=== PATIENT | male | born 1985 | race Caucasian/White ===

== ENCOUNTER → 2019-11-10 | Outpatient (CLI) | payer BC ==
--- NOTE | 2019-11-10 10:08 | CT ---
EXAMINATION TYPE: CT urogram wo/w con DATE OF EXAM: 11/10/2019 COMPARISON: None HISTORY: Microhematuria CT DLP: 3385 mGycm CONTRAST: Performed and without and with IV Contrast, patient injected with 100 ml mL of Isovue 300. CT Urography was performed with unenhanced followed by enhanced images of the kidneys, ureters and ur inary bladder. Delayed images were obtained. 3d reconstruction was performed at a separate work sta tion. FINDINGS: KIDNEYS/BLADDER: No hydronephrosis. 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 No solid masses are detected. Nonobstructing large calculus upper pole left kidney measures 2 cm. No additional calculi seen with certainty. LUNG BASES-: No visible nodule. No infiltrate. LIVER/GB: No calcified gallstones. Renal cystic changes noted. Biliary tree is of normal caliber. PANCREAS: No inflammation. No distinct mass. SPLEEN: No splenic enlargement. No lesion seen. ADRENALS: No nodule. No thickening. BOWEL: Normal appendix. Normal bowel caliber. No inflammation. GENITAL ORGANS: No gross abnormality. LYMPH NODES: No greater than 1cm abdominal or pelvic lymph nodes are appreciated. AORTA: No significant abnormality. OSSEOUS STRUCTURES: No significant abnormality is seen. OTHER: No significant additional abnormality is seen. IMPRESSION: 1. Autosomal dominant renal cystic disease. 2. Nonobstructing left-sided nephrolithiasis.
== END | disposition home or self-care (01) ==
LOC: RADCTMAIN 07:31
PROVIDERS: ATTEND Urology
DX: Q61.9 Cystic kidney disease, unspecified (principal); N20.0 Calculus of kidney
CPT/HCPCS: 74178; 74400; Q9967

== ENCOUNTER → 2019-12-19 | Outpatient (CLI) | payer BC ==
[2019-12-19 14:02] LABS: Basophils # (A) 0.1 k/uL (0-0.2); Basophils % (A) 1 %; Eosinophils # (A) 0.4 k/uL (0-0.7); Eosinophils % (A) 4 %; HCT 47.1 % (39.0-53.0); HGB 15.5 gm/dL (13.0-17.5); Lymphocytes # (A) 3.2 k/uL (1.0-4.8); Lymphocytes % (A) 34 %; MCH 26.7 pg (25.0-35.0); MCV 80.9 fL (80.0-100.0); Mean Platelet Volume 7.6; Monocytes # (A) 0.5 k/uL (0-1.0); Monocytes % (A) 5 %; Neutrophils # (A) 5.2 k/uL (1.3-7.7); Neutrophils % (A) 55 %; Platelet Count 242 k/uL (150-450); RBC 5.82 m/uL (4.30-5.90); RDW 13.7 % (11.5-15.5); WBC 9.5 k/uL (3.8-10.6)
[2019-12-19 14:14] LABS: African American GFR (CKD) >90 (>60 ml/min/1.73 sqM); Anion Gap 8 mmol/L; Blood Urea Nitrogen 18 mg/dL (9-20); Carbon Dioxide 24 mmol/L (22-30); Chloride 104 mmol/L (98-107); Glucose 89 mg/dL (74-99); Non-African American GFR(CKD) >90 (>60 ml/min/1.73 sqM); Potassium 4.5 mmol/L (3.5-5.1); Sodium 136 mmol/L (137-145)
== END ==
LOC: LABPAT 12:30
PROVIDERS: ATTEND Urology
DX: Z01.818 Encounter for other preprocedural examination (principal); N20.0 Calculus of kidney
CPT/HCPCS: 80048; 85025

== ENCOUNTER 2019-12-26 11:56 | Observation (INO) | payer BC ==
[2019-12-19 14:35] LABS: Appearance,Urine Clear (Clear); Bilirubin,Urine Negative (Negative); Blood,Urine Negative (Negative); Color,Urine Colorless; Glucose,Urine (UA) Negative (Negative); Ketones,Urine 1+ (Negative); Leukocyte Esterase,Urine Negative (Negative); Nitrite,Urine Negative (Negative); PH, Urine 5.5 (5.0-8.0); Protein,Urine Negative (Negative); Specific Gravity,Urine 1.005 (1.001-1.035); Urobilinogen,Urine <2.0 mg/dL (<2.0)
--- NOTE | 2019-12-25 13:32 | P.HPIHPCON ---
History of Present Illness H&P Date: 12/26/19 Chief Complaint: Left-sided renal stones This is a 34-year-old male with a history of 1.9 cm upper pole left-sided stone and a 1 centimeter left-sided lower pole. I discussed with him the finding of CTs in detail. Discussed with him surgical options which include PCNL, ure teroscopy, ESWL. Discussed the benefit and risk of each procedure. Discussed with him with a PCNL the stones can be addressed in 1 setting, discussed with him and ESWL or ureteroscopy would require a minimum of 2 procedures to address his stones possibly 3. He understood all the risks and agree to proceed with PCNL. Discussed with him the risk from PCNL includes but not limited to bleeding, infection, injury to nearby organ, which includes bowel, spleen, lungs. He understood all the risks and agree to proceed Consent for Procedure: I have explained the operation/procedure to the patient, including the risks, benefits, side effects, alternative therapies (including not receiving the proposed treatment or service), the likelihood of the patient achieving his/her goals, and potential recuperation problems for the procedure/sedation/analgesia, as well as any blood products, if indicated. I also explained to the patient the risks, benefits and side effects of the alternatives, as well as the risks related to not receiving the proposed procedure, care, treatment, or services. - Constitutional Constitutional: Denies chills, Denies fever - Cardiovascular Cardiovascular: Denies chest pain, Denies shortness of breath - Respiratory Respiratory: Denies cough, Denies 7 - Gastrointestinal Gastrointestinal: Denies abdominal pain, Denies diarrhea, Denies nausea, Denies vomiting - Genitourinary (Female) Genitourinary: Denies dysuria, Denies hematuria - Genitourinary (Male) Genitourinary: Denies dysuria, Denies hematuria Past Medical History Past Medical History: Asthma Additional Past Medical History / Comment(s): kidney stones x2. currently fol lowing keto diet History of Any Multi-Drug Resistant Organisms: None Reported Past Surgical History: Orthopedic Surgery Additional Past Surgical History / Comment(s): surgery lt great toe, eye surgery muscle cut to correct movement, repair deviated septum,benign tumor removed from lt canal Past Anesthesia/Blood Transfusion Reactions: No Reported Reaction Smoking Status: Current every day smoker - Past Family History Father Family Medical History: Deep Vein Thrombosis (DVT) Mother Family Medical History: Cancer Additional Family Medical History / Comment(s): breast cancer Medications and Allergies Home Medications Medication Instructions Recorded Confirmed Type ALPRAZolam [Xanax] 1 mg PO DAILY PRN 12/23/19 12/23/19 History Albuterol Inhaler [Ventolin Hfa 1 puff INHALATION DAILY PRN 12/23/19 12/23/19 History Inhaler] Biotin 5,000 mcg PO DAILY 12/23/19 12/23/19 History Cholecalciferol [Vitamin D3 (25 5,000 unit PO DAILY 12/23/19 12/23/19 History Mcg = 1000 Iu)] Ibuprofen [Motrin] 400 mg PO DAILY PRN 12/23/19 12/23/19 History Multivitamins, Thera [Multivitamin 1 tab PO DAILY 12/23/19 12/23/19 History (formulary)] [place]-3 Fatty Acids/Fish Oil [Fish 1 each PO DAILY 12/23/19 12/23/19 History Oil 1,000 mg Softgel] Allergies Allergy/AdvReac Type Severity Reaction Status Date / Time No Known Allergies Allergy Verified 12/23/19 14:42 Surgical - Exam - General well developed, well nourished, no distress, no pain - Eyes PERRL, normal ocular movement - Respiratory normal expansion, normal respiratory effort - Abdomen Abdomen: soft, non tender - Psychiatric oriented to time, oriented to person, oriented to place Assessment and Plan Assessment: 34-year-old male with history of left-sided renal stone -OR for left sided PCNL
[~2019-12-26 11:56] MED LIST: DEXAMETHASONE SOD PHOSPHATE 10 MG/ML 1 ML VIAL IV ONE; LIDOCAINE 1% (10MG/ML) FOR IV START INTRADERMA PRN; METOCLOPRAMIDE 5 MG/ML 2 ML VIAL IVP PRN; ONDANSETRON 4 MG/2 ML VIAL IVP ONE
--- NOTE | 2019-12-26 12:25 | XR ---
KUB HISTORY: Kidney stones Frontal KUB submitted on [address] images [address] correlated to CT urogram dated 11/10/2019 There is bowel gas which could obscure detail in the right. Phlebolith present within the pelvis on t he left. Left-sided renal calcifications are noted as on prior CT, upper lobe calcification measures 2.6 cm, lower pole calcification measures approximately 15 mm. No pneumoperitoneum or bowel obstructi on. Bone mineralization is normal. IMPRESSION: Left-sided nephrolithiasis.
[2019-12-26] MEDS: LACTATED RINGERS 1,000 ML IV SCH (12:45)
[2019-12-26] MEDS ORDERED: PROPOFOL 10 MG/ML 20 ML VIAL IV ONE (12:53)
[2019-12-26] MEDS ORDERED: MIDAZOLAM 2 MG/2 ML VIAL ONE (12:53)
[2019-12-26] MEDS ORDERED: HYDROmorphone (PF) 1 MG/ML ONE (12:53)
[2019-12-26] MEDS ORDERED: ROCURONIUM BROMIDE 10 MG/ML 5 ML VIAL IV ONE (12:53)
[2019-12-26] MEDS ORDERED: LIDOCAINE 1% INJ 10MG/ML (20 ML MDV) ONE (12:53)
[2019-12-26] MEDS ORDERED: fentaNYL (PF) 50 MCG/ML 2 ML AMP ONE (12:53)
[2019-12-26] MEDS ORDERED: SUCCINYLCHOLINE CHLORIDE 100 MG/5 ML SYR IV ONE (12:53)
[2019-12-26 13:10] LABS: INR 0.9 (<1.2); Prothrombin Time 9.7 sec (9.0-12.0)
[2019-12-26] MEDS ORDERED: IOPAMIDOL-370 50ML BTL IRRIGATION ONE ×2 (13:30)
[2019-12-26] MEDS ORDERED: LACTATED RINGERS 1,000 ML IV ONE ×2 (14:31→18:50)
[2019-12-26] MEDS: HYDROmorphone 0.5 MG/0.5 ML SYRINGE IVP PRN ×4 (18:50→18:56)
--- NOTE | 2019-12-26 18:59 | P.OP ---
Date of Procedure: 12/26/19 Preoperative Diagnosis: Left-sided renal stone Postoperative Diagnosis: Same Procedure(s) Performed: Cystoscopy, left ureteral catheterization, percutaneous nephrolithotomy, and antegrade stent placement Implants: 6-Swedish by 26 cm stent Anesthesia: ERNESTINA Surgeon: Boogie García Estimated Blood Loss (ml): 75 Pathology: other (Left renal stone) Condition: stable Indications for Procedure: This is a 34-year-old male with a history of 1.9 cm upper pole left-sided stone and a 1 centimeter left-sided lower pole. I discussed with him the finding of CTs in detail. Discussed with him surgical options which include PCNL, ureteroscopy, ESWL. Discussed the benefit and risk of each procedure. Discussed with him with a PCNL the stones are more likely to be addressed in 1 setting, discussed with him and ESWL or ureteroscopy would require a minimum of 2 procedures to address his stones possibly 3. He understood all the risks and agree to proceed with PCNL. Discussed with him the risk from PCNL includes but not limited to bleeding, infection, injury to nearby organ, which includes bowel, spleen, lungs. He understood all the risks and agree to proceed Operative Findings: 2 stones within the kidney, stone within the lower pole and additional stone within the upper pole. 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 Description of Procedure: Patient was brought to the operating room, general anesthesia was induced. He was prepped and draped and placed in the supine position on the stretcher. Cystoscopy fitted with 21 sheath was inserted per urethra, cystoscopy was performed whic showed No abnormality within the bladder. Next a 5-Swedish balloon occluding catheter was passed up the left ureteral orifice. a 16 fr house was placed. At this time the patient was placed in prone position. All pressure points were adequately padded. The patient was prepped and draped in sterile fashion. The sinterventional radiology obtained access to the left collecting. Please see Dr. Carroll's dictation for that portion of the surgery. Once access was obtained and 2 wires were placed down the ureter. At this time a nephrostomy balloon dilator was passed over the stiff wire, and it was inflated under fluoroscopy and was in adequate position. Next a 30-Swedish access sheath was passed over the nephrostomy balloon dilator. At this point the rigid nephroscope was inserted through the access sheath and the stone was encountered in the lower pole. The stone was fragmented using the ultrasound lithotripter. The fragments were removed and sent to pathology. at this time attention was carried to the upper pole stone. I attempted to advance the rigid nephroscope to the upper pole but wasn't able to secondary to the acute angle of the upper pole and infidubilar stenosis. At this time we switched to a flexible cystoscope. With moderate difficulty I was able to get up to the stone but of note patient had severe infundibular stenosis additionally there was an acute angle of the kidney stone. Using the holmium laser stone was fragmented into smaller fragments, fragments were removed and sent to pathology. Of note there was approximately 5 mm stone that was embedded within the upper pole and it was in an acute angle, multiple attempts were made to get access to the stone using the laser but I was not able to. Repeat nephroscopy demonstrated no other sizable fragments except the stone that was embedded within the upper pole. Nephroscopy was performed which showed evidence of UPJ narrowing. Given this finding decision was made to place an antegrade stent. Antegrade stent was placed under fluoroscopy, the distal curl was visualized on fluoroscopy, and the proximal curl was visualized on fluoroscopy also. Next a 10-Swedish nephrostomy tube was passed over the second wire and antegrade nephrostogram was performed which showed the nephrostomy tube to be in adequate location. The skin was closed using 2-0 silk, the tube was secured to the skin using the silks stitch. Sterile dressing was placed on the nephrostomy tube side. At this time the patient was placed back into supine position on the stretcher. flexible cystoscope was performed which confirmed that the distal curl was indeed in the bladder. The patient was awakened from anesthesia and taken to recovery in stable condition
[2019-12-26] MEDS ORDERED: ALPRAZolam 1 MG TAB PO PRN (19:02)
[2019-12-26] MEDS ORDERED: ALBUTEROL HFA INHALER INHALATION PRN (19:02)
[2019-12-26] MEDS: HYDROmorphone 1 MG/ML 1 ML SYRINGE IVP PRN ×2 (21:14→23:28)
[2019-12-26 21:18] VITALS: RESP 18
[2019-12-26] MEDS: D5-0.45% NACL WITH KCL 20MEQ/L 1,000 ML IV SCH (21:19)
[2019-12-27] MEDS ORDERED: ONDANSETRON 4 MG/2 ML VIAL IVP PRN (00:15)
[2019-12-27] MEDS: HEPARIN SODIUM,PORCINE 5,000 UNIT/ML 1 ML VIAL SQ SCH ×2 (00:47→08:54)
[2019-12-27] MEDS: KETOROLAC 15 MG/ML 1 ML VIAL IVP SCH ×2 (00:48→05:23)
[2019-12-27 02:09] VITALS: TEMP 97.7
[2019-12-27] MEDS: HYDROmorphone 1 MG/ML 1 ML SYRINGE IVP PRN (03:59)
[2019-12-27] MEDS: D5-0.45% NACL WITH KCL 20MEQ/L 1,000 ML IV SCH (04:08)
[2019-12-27] MEDS: LACTATED RINGERS 1,000 ML IV SCH (05:25)
[2019-12-27 07:05] LABS: Basophils % (A) 0 %; Eosinophils % (A) 0 %; HGB 13.9 gm/dL (13.0-17.5); Lymphocytes # (A) 1.5 k/uL (1.0-4.8); Lymphocytes % (A) 11 %; MCHC 31.5 g/dL (31.0-37.0); MCV 82.6 fL (80.0-100.0); Mean Platelet Volume 7.6; Monocytes # (A) 1.1 k/uL (0-1.0); Monocytes % (A) 8 %; Neutrophils # (A) 10.4 k/uL (1.3-7.7); Neutrophils % (A) 79 %; Platelet Count 233 k/uL (150-450); RBC 5.33 m/uL (4.30-5.90); RDW 14.4 % (11.5-15.5); WBC 13.1 k/uL (3.8-10.6)
--- NOTE | 2019-12-27 07:23 | FL ---
EXAMINATION TYPE: FL Perc Nephrostomy New Access DATE OF EXAM: 12/26/2019 COMPARISON: NONE HISTORY: Left nephrolithiasis. PROCEDURE: Maximal barrier technique was utilized, hand hygiene obtained with soap and water and alcohol-based h and rub. The skin overlying the left kidney was localized using fluoroscopy and the overlying skin p repped and draped. Skin anahi was made with a scalpel. Access was gained under fluoroscopy, following placement of a ureteral occlusion balloon by the referring clinician and instillation of air in the renal collecting system with a 21-gauge needle to the left kidney. A suitable posterior calyx was ch osen. A 0.018 inch wire was advanced. The access site was dilated following selection of the urete r with a 5 [place] catheter and 0.035 inch angled Glidewire and placement of a additional stiff wire, access site was upsized, safety wire deployed and subsequently a sheath was advanced into the r enal pelvis following dilation with balloon along the tract. The patient underwent nephrolithotomy by the referring clinician. The patient remained in stable condition without complication. The patie nt was discharged to observation in the care of anesthesia. IMPRESSION: STATUS POST NEPHROSTOMY PLACEMENT FOR NEPHROLITHOTOMY WITH FLUOROSCOPIC GUIDANCE. THIS PROCEDURE PER FORMED BY THE UNDERSIGNED.
[2019-12-27 09:04] LABS: African American GFR (CKD) 101.7 (60.0-200.0); Anion Gap 10.4 mmol/L (4.00-12.00); BUN/Creat Ratio 12.73 Ratio (12.00-20.00); Calcium 8.9 mg/dL (8.7-10.3); Carbon Dioxide 29.6 mmol/L (21.6-31.8); Non-African American GFR(CKD) 87.7 (60.0-200.0); Potassium 4.2 mmol/L (3.5-5.5)
[2019-12-27 09:30] VITALS: BP 111/62; PULSE 91
[2019-12-27 10:12] VITALS: BMI 36.3
--- NOTE | 2019-12-27 10:20 | P.DS ---
Providers Date of admission: 12/27/19 04:11 Attending physician: Boogie García MD Primary care physician: [facility] Course: The patient underwent a left percutaneous nephrostolithotomy by yesterday. He did well overnight. His urine is cleared nicely. He is ready for discharge home. He will be discharged home with a small prescription of Lang[place]. He'll go home with the nephrostomy tube. The catheter and IV will be removed. Postoperative instructions been given. He'll see Dr. Zelaya on December 31 and follow-up. His condition is good. Patient Condition at Discharge: Good Plan - Discharge Summary Discharge Rx Participant: Yes New Discharge Prescriptions: New HYDROcodone/APAP 5-325MG [Lang[place] 5-325] 1 tab PO Q4HR PRN #10 tab PRN Reason: Pain No Action Multivitamins, Thera [Multivitamin (formulary)] 1 tab PO DAILY Ibuprofen [Motrin] 400 mg PO DAILY PRN PRN Reason: Pain Cholecalciferol [Vitamin D3 (25 Mcg = 1000 Iu)] 5,000 unit PO DAILY [place]-3 Fatty Acids/Fish Oil [Fish Oil 1,000 mg Softgel] 1 each PO DAILY ALPRAZolam [Xanax] 1 mg PO DAILY PRN PRN Reason: Anxiety Biotin 5,000 mcg PO DAILY Albuterol Inhaler [Ventolin Hfa Inhaler] 1 puff INHALATION DAILY PRN PRN Reason: Dyspnea Discharge Medication List ALPRAZolam [Xanax] 1 mg PO DAILY PRN 12/23/19 [History] Albuterol Inhaler [Ventolin Hfa Inhaler] 1 puff INHALATION DAILY PRN 12/23/19 [History] Biotin 5,000 mcg PO DAILY 12/23/19 [History] Cholecalciferol [Vitamin D3 (25 Mcg = 1000 Iu)] 5,000 unit PO DAILY 12/23/19 [History] Ibuprofen [Motrin] 400 mg PO DAILY PRN 12/23/19 [History] Multivitamins, Thera [Multivitamin (formulary)] 1 tab PO DAILY 12/23/19 [History] [place]-3 Fatty Acids/Fish Oil [Fish Oil 1,000 mg Softgel] 1 each PO DAILY 12/23/19 [History] HYDROcodone/APAP 5-325MG [[place] 5-325] 1 tab PO Q4HR PRN #10 tab 12/27/19 [Rx] Follow up Appointment(s)/Referral(s): Boogie García MD [STAFF PHYSICIAN] - 1 Week Discharge Disposition: HOME SELF-CARE
[2019-12-27] MEDS ORDERED: ACETAMINOPHEN TAB 325 MG TAB PO STA (11:31)
== END 2019-12-27 12:45 | disposition home or self-care (01) ==
LOC: OR 11:56 → 4SSUR 18:48 → OR 12-27 04:10 → 4SSUR 12-27 04:11
PROVIDERS: ADMIT Urology; ATTEND Urology
DX: N20.0 Calculus of kidney (principal); Q61.3 Polycystic kidney, unspecified; K21.9 Gastro-esophageal reflux disease without esophagitis
CPT/HCPCS: 50080; 94760; 86900; 86901; 80048; 85025; 85610; 86850; 81003; 82365; 87086; 50432; 74018; 36415; G0378; C2625; C1769 ×3; C1894; C1729; J2250; J1644; J1100; J2765; J0690 ×2; J2405 ×2; J2001; J3010; J1170 ×3; J1885; J0330; J2704; Q9967

== ENCOUNTER 2020-01-14 08:08 | Day surgery (SDC) | payer BC ==
[2020-01-09 15:16] VITALS: BMI 36.5
--- NOTE | 2020-01-13 21:58 | P.HPIHPCON ---
History of Present Illness H&P Date: 01/14/20 Mr Meza is 34 yo male with hx of 2cm and 1 cm left renal stone S/P Left PCNL. Patient had stone fragment within the upper pole that could not be removed due to acute angle of the upper pole. He presents today for left sided ureteroscopy with holmium laser to address his stone. Of note his stent that was partially extruding from the left UO, he didn't tolerate attempted stent removal in the office. He presents today for left ureteroscopy, holmium laser lithotripsy and stent removal. discussed with him the risk of surgery which include but not limited to bleeding, infection and injury to ureter. Consent for Procedure: I have explained the operation/procedure to the patient, including the risks, benefits, side effects, alternative therapies (including not receiving the proposed treatment or service), the likelihood of the patient achieving his/her goals, and potential recuperation problems for the procedure/sedation/analgesia, as well as any blood products, if indicated. I also explained to the patient the risks, benefits and side effects of the alternatives, as well as the risks related to not receiving the proposed procedure, care, treatment, or services. Past Medical History Past Medical History: Asthma Additional Past Medical History / Comment(s): kidney stones x2. currently following keto diet History of Any Multi-Drug Resistant Organisms: None Reported Past Surgical History: Orthopedic Surgery Additional Past Surgical History / Comment(s): surgery lt great toe, eye surgery muscle cut to correct movement, repair deviated septum, benign tumor removed from lt canal, Past Anesthesia/Blood Transfusion Reactions: Postoperative Nausea & Vomiting (PONV) Additional Past Anesthesia/Blood Transfusion Reaction / Comment(s): nausea after last procedure Past Psychological History: Anxiety Smoking Status: Former smoker Past Alcohol Use History: Rare Additional Past Alcohol Use History / Comment(s): smoked cig x8 years currently was smoking 1 cigar daily,none since end 12/26/19 Past Drug Use History: None Reported - Past Family History Father Family Medical History: Deep Vein Thrombosis (DVT) Mother Family Medical History: Cancer Additional Family Medical History / Comment(s): breast cancer Medications and Allergies Home Medications Medication Instructions Recorded Confirmed Type ALPRAZolam [Xanax] 1 mg PO DAILY PRN 12/23/19 01/09/20 History Albuterol Inhaler [Ventolin Hfa 1 puff INHALATION DAILY PRN 12/23/19 01/09/20 History Inhaler] Biotin 5,000 mcg PO DAILY 12/23/19 01/09/20 History Cholecalciferol [Vitamin D3 (25 5,000 unit PO DAILY 12/23/19 01/09/20 History Mcg = 1000 Iu)] Multivitamins, Thera [Multivitamin 1 tab PO DAILY 12/23/19 01/09/20 History (formulary)] [place]-3 Fatty Acids/Fish Oil [Fish 1 each PO DAILY 12/23/19 01/09/20 History Oil 1,000 mg Softgel] HYDROcodone/APAP 5-325MG [[place] 1 tab PO Q4HR PRN #10 tab 12/27/19 01/09/20 Rx 5-325] Acetaminophen [Tylenol] 325 - 650 mg PO Q4H PRN 01/09/20 01/09/20 History Allergies Allergy/AdvReac Type Severity Reaction Status Date / Time No Known Allergies Allergy Verified 01/09/20 15:01 Surgical - Exam - General well developed, well nourished, no distress, no pain - Respiratory normal expansion, normal respiratory effort - Abdomen Abdomen: soft, non tender - Psychiatric oriented to time, oriented to person, oriented to place, speech is normal Assessment and Plan Assessment: 34 yo with hx of left sided renal stone -OR for left sided ureteroscopy with holmium laser lithotripsy, stone basketting and stent placement
[~2020-01-14 08:08] MED LIST changes: +LACTATED RINGERS 1,000 ML IV SCH; -METOCLOPRAMIDE 5 MG/ML 2 ML VIAL IVP PRN; -ONDANSETRON 4 MG/2 ML VIAL IVP ONE
--- NOTE | 2020-01-14 08:27 | XR ---
EXAMINATION TYPE: XR KUB DATE OF EXAM: 01/14/2020 8:18 AM CLINICAL HISTORY: Kidney stone and stent. TECHNIQUE: Two supine KUB images of the abdomen are obtained. COMPARISON: CT urogram November 10, 2019 abdominal x-ray December 26, 2019. FINDINGS: New double-J left ureteral stent. Large calculus upper pole left kidney on CT less well see n on plain films. Enlarged left renal margin redemonstrated. Overall nonobstructive bowel gas pattern. Visualized osseous structures are intact. IMPRESSION: As above.
[2020-01-14] MEDS ORDERED: ONDANSETRON 4 MG/2 ML VIAL ONE ×2 (08:36→13:56)
[2020-01-14] MEDS ORDERED: fentaNYL (PF) 50 MCG/ML 2 ML AMP ONE (10:04)
[2020-01-14] MEDS ORDERED: HYDROmorphone (PF) 1 MG/ML ONE (10:04)
[2020-01-14] MEDS ORDERED: LIDOCAINE 1% INJ 10MG/ML (20 ML MDV) ONE (10:04)
[2020-01-14] MEDS ORDERED: PROPOFOL 10 MG/ML 20 ML VIAL IV ONE (10:04)
[2020-01-14] MEDS ORDERED: MIDAZOLAM 2 MG/2 ML VIAL ONE (10:04)
[2020-01-14] MEDS ORDERED: PHENYLEPHRINE-0.9% NACL SYG 1 MG/10 ML SYRINGE ONE (10:04)
[2020-01-14] MEDS ORDERED: IOPAMIDOL-370 50ML BTL MISCELLANE ONE (10:42)
[2020-01-14] MEDS ORDERED: IOPAMIDOL-370 50ML BTL INTRATHECA ONE (10:42)
[2020-01-14] MEDS ORDERED: LACTATED RINGERS 1,000 ML IV ONE (10:58)
[2020-01-14 12:29] VITALS: TEMP 98.1
--- NOTE | 2020-01-14 12:50 | P.OP ---
Date of Procedure: 01/14/20 Preoperative Diagnosis: Left renal calculi Postoperative Diagnosis: Left renal calculi/bladder tumor Procedure(s) Performed: Cystoscopy, left ureteroscopy, holmium laser lithotripsy, stone basketing, stent exchange and bladder biopsy with fulguration Implants: 4.8-Fijian by 26 cm left on a string Anesthesia: ERNESTINA Surgeon: Boogie García Estimated Blood Loss (ml): 5 Pathology: other (Left renal calculi, bladder tumor) Condition: stable Disposition: PACU Indications for Procedure: Mr Meza is 34 yo male with hx of 2cm and 1 cm left renal stone S/P Left PCNL. Patient had stone fragment within the upper pole that could not be removed due to acute angle of the upper pole. He presents today for left sided ureteroscopy with holmium laser to address his stone. Of note his stent that was partially extruding from the left UO, he didn't tolerate attempted stent removal in the office. He presents today for left ureteroscopy, holmium laser lithotripsy and stent removal. discussed with him the risk of surgery which include but not limited to bleeding, infection and injury to ureter. Operative Findings: Papillary lesion along the posterior bladder wall, medial to the ureteral orifice, stone within the upper pole, no additional stones seen within the kidney Description of Procedure: Patient was brought to the operating room, general anesthesia was induced. He was prepped and draped in sterile fashion a placemed in dorsal lithotomy position. Cystoscopy fitted with 21 sheath was inserted per urethra, cystoscopy was performed which showed a papillary lesion that measured less than 0.5 emma timeter, and was located along the posterior bladder wall medial to the left ureteral orifice. The described lesion biopsy and sent to pathology, the area of biopsy was thoroughly fulgurated. Repeat cystoscopy showed no additional lesions or any other papillary lesion, there is no evidence of bleeding at the end of the fulguration. At this time the cystoscope was withdrawn and a semirigid ureteroscope was inserted. The stent appeared to have migrated a little further into the ureter. Using the stone basket the stent was grasped and removed intact. At this time the cystoscope was reinserted and the left ureteral orifice was intubated with a 6-Fijian open-ended catheter, retrograde pyelogram was performed showed no filling defect along the course a ureter. Next a sensor wire was advanced through the catheter, next an 11 x 13-Fijian access sheath was passed over the wire into the proximal ureter under fluoroscopy. The flexible ureteroscope was inserted through the access teeth. Using the holmium laser the stone was initially dusted, and then the smaller pieces were further fragmented. Using the stone basket the larger pieces were removed. Repeat ureteroscopy demonstrated no additional stones or any sizable fragments. Pullback ureteroscopy was performed showed no injury to the ureter or ureteral stones. Next a 4.8-Fijian by 26 cm stent was passed over the wire, the proximal curl was visualized on fluoroscopy and the distal curl was visualized using the cystoscope. The stent was left on a string. The bladder was emptied and of the case, the patient thought the procedure well taken to PACU in stable condition
[2020-01-14] MEDS ORDERED: ONDANSETRON 4 MG/2 ML VIAL IVP ONE (13:55)
[2020-01-14 14:03] VITALS: BP 127/79; PULSE 94; RESP 16
--- NOTE | 2020-01-14 16:46 | FL ---
EXAMINATION TYPE: FL cystogram DATE OF EXAM: 01/14/2020 COMPARISON: NONE HISTORY: Stones TECHNIQUE: Fluoroscopy. FINDINGS: Fluoroscopic guidance was provided during procedure performed by Dr. García. A total of 3 9 seconds of fluoroscopic time was utilized during the procedure and 1 spot images was acquired. IMPRESSION: As Above.
== END 2020-01-14 14:25 | disposition home or self-care (01) ==
LOC: OR 08:08
PROVIDERS: ATTEND Urology
DX: N20.0 Calculus of kidney (principal); J45.909 Unspecified asthma, uncomplicated; Z87.442 Personal history of urinary calculi; Z98.890 Other specified postprocedural states; F41.9 Anxiety disorder, unspecified; Z87.891 Personal history of nicotine dependence; Z82.49 Family history of ischemic heart disease and other diseases of the circulatory system; Z80.3 Family history of malignant neoplasm of breast; Z79.899 Other long term (current) drug therapy; K21.9 Gastro-esophageal reflux disease without esophagitis
CPT/HCPCS: 52356; 52204; 82365; 74430; 74018; C2625; C1758; C1769; J2250; J1100; J0690; J2405; J2001; J3010; J1170; J2370; J2704; Q9967; 88305